=== PATIENT | female | born 1935 | race Caucasian/White ===

== ENCOUNTER 2018-12-18 16:46 | Emergency (ER) | payer SELFPAY ==
[~2018-12-18] VITALS: Ht 165.1 cm; Wt 64.0 kg
[2018-12-18 19:09] VITALS: BP 172/68
== END 2018-12-19 01:11 | disposition left against medical advice (07) ==
LOC: ER 16:57
DX: Z53.21 Procedure and treatment not carried out due to patient leaving prior to being seen by health care provider (principal)